=== PATIENT | male | born 1995 | race Caucasian/White ===

== ENCOUNTER 2019-09-26 20:54 | Emergency (ER) | payer BC ==
[2019-09-26 21:17] VITALS: BP 124/72
--- NOTE | 2019-09-26 21:47 | UC ---
Throat Pain/Nasal Murtaza HPI - HPI Summary HPI Summary: 3 DAYS OF SORE THROAT, PAIN WITH SWALLOWING, MALAISE AND OVERALL FATIGUE. TODAY NOTICED SOME WHITE SPOTS ON HIS TONSILS. HAD SUBJECTIVE FEVER AND CHILLS. - History of Current Complaint Chief Complaint: UCRespiratory Stated Complaint: SORE THROAT Time Seen by Provider: 09/26/19 21:19 Hx Obtained From: Patient Onset/Duration: Gradual Onset, Lasting Days, Still Present Severity: Moderate Pain Intensity: 3 Pain Scale Used: 0-10 Numeric Cough: None Associated Signs & Symptoms: Positive: Fever - Allergies/Home Medications Allergies/Adverse Reactions: Allergies Allergy/AdvReac Type Severity Reaction Status Date / Time Penicillins Allergy Intermediate Rash Verified 09/26/19 21:17 Home Medications: Home Medications Acetaminophen [7T Gummy Es] 1 tab PO ONCE PRN 09/26/19 [History Confirmed ] BuPROPion XL* [Bupropion XL*] 1 tab PO DAILY 09/26/19 [History Confirmed ] Cyanocobalamin (Vitamin B-12) [Vitamin B-12] 1 tab PO DAILY 09/26/19 [History Confirmed 09/26/19] Valacyclovir HCl [Valacyclovir] 1 dose PO BID PRN 09/26/19 [History Confirmed ] PMH/Surg Hx/FS Hx/Imm Hx Psychological History: Anxiety, Depression - Surgical History Surgical History: None - Family History Known Family History: Positive: Non-Contributory - Social History Alcohol Use: Rare Substance Use Type: Marijuana Smoking Status (MU): Never Smoked Tobacco - Immunization History Vaccination Up to Date: Yes Review of Systems All Other Systems Reviewed And Are Negative: Yes Constitutional: Positive: Fever, Fatigue ENT: Positive: Sore Throat Respiratory: Positive: Negative Cardiovascular: Positive: Negative Gastrointestinal: Positive: Negative Physical Exam Triage Information Reviewed: Yes Appearance: No Pain Distress, Well-Nourished, Ill-Appearing - APPEARS FATIGUED Vital Signs: Initial Vital Signs Temp 100.4 F 09/26/19 21:13 Pulse 96 09/26/19 21:13 Resp 18 09/26/19 21:13 BP 124/72 09/26/19 21:13 Pulse Ox 100 09/26/19 21:13 Laboratory Tests 09/26/19 21:22 Group A Strep Rapid Negative Vital Signs Reviewed: Yes Eyes: Positive: Conjunctiva Clear ENT: Positive: Hearing grossly normal, Pharyngeal erythema, TMs normal, Tonsillar exudate. Negative: Tonsillar swelling Neck: Positive: Supple, Tenderness @ - ANTERIOR CERVICAL LAD, Enlarged Nodes @ - SHOTTY ANTERIOR CERVICAL LAD Respiratory Exam: Normal Cardiovascular Exam: Normal Abdomen Description: Positive: Soft Musculoskeletal: Positive: No Edema Neurological: Positive: Alert Psychological: Positive: Age Appropriate Behavior Skin: Negative: Rashes Throat Pain/Nasal Course/Dx - Course Course Of Treatment: STREP NEGATIVE. PATIENTS PRESENTATION IS CONSISTENT WITH A VIRAL TONSILLITIS/ PHARYNGITIS. CONSIDER MONO. PATIENT DECLINES BLOOD TEST TODAY WHICH I THINK IS REASONABLE. WILL TREAT CONSERVATIVELY WITH REST, HYDRATION, OTC MEDICATIONS NEEDED FOR FEVER AND DISCOMFORT. WILL GIVE A SHORT BURST OF STEROIDS TO HELP WITH THE INFLAMMATION AND PAIN OF THE SORE THROAT. FOLLOW-UP WITH HIS PCP IF HE IS NOT IMPROVING EXPECTED. - Differential Dx/Diagnosis Provider Diagnosis: Acute viral tonsillitis Discharge ED - Sign-Out/Discharge Documenting (check all that apply): Patient Departure All imaging exams completed and their final reports reviewed: No Studies - Discharge Plan Condition: Stable Disposition: HOME Prescriptions: predniSONE TAB* [Deltasone 20 MG TAB*] 40 mg PO DAILY #8 tab Patient Education Materials: Tonsillitis (ED) Referrals: Janey Pina MD [Primary Care Provider] - If Needed Additional Instructions: STREP NEGATIVE. YOUR SYMPTOMS ARE LIKELY VIRALLY MEDIATED AND SHOULD RESOLVE ON THEIR OWN WITH TIME. CONSIDER MONO. NO INDICATION FOR ANTIBIOTICS AT PRESENT. REST, HYDRATE, OTC MEDS NEEDED. I RECOMMEND 600MG IBUPROFEN EVERY 6 HOURS. WILL TREAT WITH PREDNISONE TO HELP WITH INFLAMMATION. SEEK FOLLOW-UP IF YOU ARE NOT IMPROVING OVER THE NEXT 1-2 WEEKS. - Billing Disposition and Condition Condition: STABLE Disposition: Home
== END 2019-09-26 21:45 | disposition home or self-care (01) ==
LOC: UCEAST 20:54
DX: J03.90 Acute tonsillitis, unspecified (principal); B97.89 Other viral agents as the cause of diseases classified elsewhere; R53.83 Other fatigue; F32.9 Major depressive disorder, single episode, unspecified; F41.9 Anxiety disorder, unspecified; Z79.899 Other long term (current) drug therapy; Z88.0 Allergy status to penicillin
CPT/HCPCS: 87651; 99212; G0463; J7512